=== PATIENT | female | born 1945 | race African-American/Black ===

== ENCOUNTER 2020-12-26 16:47 | Emergency (ER) | payer BC, MEDICARE ==
[~2020-12-26] VITALS: Ht 165.1 cm; Wt 63.5 kg
[~2020-12-26 16:47] MED LIST: BUTA1CAP45 PO; NITR0.4T49 SL; OXYC-105 PO
[2020-12-26] MEDS ORDERED: MAGNESIUM/ALUMINUM HYDROXIDE/SIMETHICONE 30ML UDC PO ONE (17:30)
[2020-12-26] MEDS ORDERED: HYDROCODONE/ACETAMINOPHEN 5/325MG TABLET PO ONE (17:30)
[2020-12-26] MEDS ORDERED: NITROGLYCERIN 0.4MG TABLET SL SL PRN (17:30)
[2020-12-26] MEDS ORDERED: ACETAMINOPHEN 325MG TABLET PO ONE (17:30)
[2020-12-26 18:57] LABS: BASOPHILS % 0.7 % (0.0-2.0); EOSINOPHILS % 0.7 % (0.0-5.0); HEMATOCRIT. 35.4 % (36.0-48.0); MEAN CORPUSCULAR HEMOGLOBIN 30.2 pg (28.0-32.0); MEAN CORPUSCULAR VOLUME 88.7 fL (81.0-99.0); MEAN PLATELET VOLUME 8.4 fl (7.4-10.4); MONOCYTES % 4.5 % (2.0-8.0); NEUTROPHILS % 83.1 % (40.0-76.0); PLATELET 374 x1000/uL (130-400); RED BLOOD CELL COUNT 3.98 mill/uL (4.2-5.4); RED CELL DISTRIBUTION WIDTH 15.3 % (11.6-14.6)
[2020-12-26 19:01] LABS: CHLORIDE 109 mEq/L (98-107)
[2020-12-26 19:06] LABS: PROTHROMBIN TIME 10.8 sec (9.6-11.0)
[2020-12-26 21:22] VITALS: BP 131/82
== END 2020-12-26 21:25 | disposition left against medical advice (07) ==
LOC: ER 16:47
DX: R07.89 Other chest pain (principal); I10 Essential (primary) hypertension; Z79.899 Other long term (current) drug therapy
CPT/HCPCS: 36415; 71045; 80053; 83880; 84484; 85025; 93005; 99285

== ENCOUNTER 2021-07-16 22:20 | Emergency (ER) | payer BC ==
[~2021-07-16] VITALS: Ht 175.3 cm; Wt 78.0 kg
[2021-07-17] MEDS ORDERED: VISCOUS LIDOCAINE 2% 15 ML UDC PO STA (01:24)
[2021-07-17] MEDS ORDERED: MAGNESIUM/ALUMINUM HYDROXIDE/SIMETHICONE 30ML UDC PO STA (01:24)
[2021-07-17] MEDS ORDERED: MORPHINE SULFATE 4 MG/ML CPJ (NOT FOR IM USE) IV ONE (01:30)
[2021-07-17 02:16] LABS: CHLORIDE 111 mEq/L (98-107)
[2021-07-17 03:24] LABS: BASOPHILS % 0.5 % (0.0-2.0); EOSINOPHILS % 0.6 % (0.0-5.0); HEMATOCRIT. 38.8 % (36.0-48.0); HEMOGLOBIN. 13.4 g/dL (12.0-16.0); LYMPHOCYTES % 20.4 % (20.0-50.0); MEAN CORPUSCULAR HEMOGLOBIN 30.5 pg (28.0-32.0); MEAN CORPUSCULAR VOLUME 88.6 fL (81.0-99.0); MEAN PLATELET VOLUME 8.7 fl (7.4-10.4); MONOCYTES % 6.2 % (2.0-8.0); NEUTROPHILS % 72.3 % (40.0-76.0); PLATELET 266 x1000/uL (130-400); RED BLOOD CELL COUNT 4.38 mill/uL (4.2-5.4); RED CELL DISTRIBUTION WIDTH 15.8 % (11.6-14.6)
[2021-07-17] MEDS ORDERED: MAG355OR21 MT (03:36)
[2021-07-17 04:05] VITALS: BP 165/90
== END 2021-07-17 04:09 | disposition home or self-care (01) ==
LOC: ER 22:20
DX: R07.9 Chest pain, unspecified (principal); I10 Essential (primary) hypertension; I25.10 Atherosclerotic heart disease of native coronary artery without angina pectoris; Z88.8 Allergy status to other drugs, medicaments and biological substances; Z79.899 Other long term (current) drug therapy; Z20.822 Contact with and (suspected) exposure to COVID-19
CPT/HCPCS: 36415; 71045; 80053; 83880; 84484; 85025; 87426; 93005; 96374; 99285; J2270

== ENCOUNTER 2021-09-15 10:46 | Inpatient (IN) | payer BC ==
[~2021-09-15] VITALS: Ht 170.2 cm; Wt 69.9 kg
[~2021-09-15 10:46] MED LIST changes: +MAG355OR21 MT
[2021-09-15 11:50] LABS: BASOPHILS % 0.7 % (0.0-2.0); EOSINOPHILS % 0.6 % (0.0-5.0); HEMATOCRIT. 38.6 % (36.0-48.0); LYMPHOCYTES % 16.3 % (20.0-50.0); MEAN CORPUSCULAR HEMOGLOBIN 30.3 pg (28.0-32.0); MEAN CORPUSCULAR VOLUME 90.2 fL (81.0-99.0); MEAN PLATELET VOLUME 8.7 fl (7.4-10.4); MONOCYTES % 5.6 % (2.0-8.0); NEUTROPHILS % 76.8 % (40.0-76.0); PLATELET 248 x1000/uL (130-400); RED BLOOD CELL COUNT 4.28 mill/uL (4.2-5.4)
[2021-09-15 11:55] LABS: CHLORIDE 110 mEq/L (98-107)
[2021-09-15 12:14] LABS: BG BASE EXCESS -1.3 mmol/L (-2.0-2.0); BG CARBOXYHEMOGLOBIN 0.3 % (0.5-1.5); BG DEOXYHEMOGLOBIN 2.8 % (0.0-5.0); BG FRACTION INSPIRED OXYGEN 21; BG HCO3 ACT 21.4 mmol/L (22.0-26.0); BG METHEMOGLOBIN 0.1 % (0.0-1.5); BG OXYGEN SATURATION 97.2 % (92.0-98.5); BG OXYHEMOGLOBIN 96.8 % (94.0-97.0); BG PCO2 30.2 mmHg (35.0-45.0); BG PH 7.468 (7.350-7.450); BG PO2 90.6 mmHg (75.0-100.0); BG SAMPLE SITE RIGHT BRACHIAL; BG TOTAL HEMOGLOBIN 13.3 g/dL (12.0-18.0); BG VENT MODE ROOM AIR
[2021-09-15 12:18] LABS: CLARITY URINE CLEAR (CLEAR); COLOR URINE YELLOW (YELLOW); KETONES URINE NEGATIVE (NEGATIVE); LEUKOCYTE ESTERASE URINE NEGATIVE (NEGATIVE); NITRITE URINE NEGATIVE (NEGATIVE); OCCULT BLOOD URINE NEGATIVE (NEGATIVE); PH URINE 5.5 (4.5-8.0); PROTEIN URINE NEGATIVE (NEGATIVE); SPECIFIC GRAVITY URINE 1.013 (1.005-1.030); UROBILINOGEN URINE 0.2 E.U./dL (0.2-1.0)
[2021-09-15] MEDS ORDERED: MORPHINE SULFATE 4 MG/ML CPJ (NOT FOR IM USE) IV NR (13:38)
[2021-09-15] MEDS ORDERED: AMLODIPINE 5MG TABLET PO NR (16:15)
[2021-09-15] MEDS ORDERED: ACETAMINOPHEN 325MG TABLET PO ONE (16:30)
[2021-09-15] MEDS ORDERED: ENOXAPARIN 40MG/0.4ML SYR SUBCUT SCH (17:00)
[2021-09-15] MEDS: OXYCODONE HCL/ACETAMINOPHEN 5/325MG TABLET PO PRN (20:02)
[2021-09-15 21:00] VITALS: BP 178/87
[2021-09-15] MEDS ORDERED: DILTIAZEM HCL 60MG TABLET PO NR (21:23)
[2021-09-15 22:00] VITALS: BP 178/71
[2021-09-16] VITALS: BP 123/72
[2021-09-16] MEDS: OXYCODONE HCL/ACETAMINOPHEN 5/325MG TABLET PO PRN (03:40)
[2021-09-16 04:00] VITALS: BP 131/72
[2021-09-16 08:00] VITALS: BP 142/64
[2021-09-16] MEDS ORDERED: AMLODIPINE 5MG TABLET PO SCH (09:00)
[2021-09-16 09:33] LABS: EOSINOPHILS % 1.9 % (0.0-5.0); HEMATOCRIT. 39.8 % (36.0-48.0); HEMOGLOBIN. 13.5 g/dL (12.0-16.0); LYMPHOCYTES % 41.3 % (20.0-50.0); MEAN CORPUSCULAR HEMOGLOBIN 30.5 pg (28.0-32.0); MEAN CORPUSCULAR VOLUME 90.3 fL (81.0-99.0); MEAN PLATELET VOLUME 8.8 fl (7.4-10.4); MONOCYTES % 10.1 % (2.0-8.0); NEUTROPHILS % 45.7 % (40.0-76.0); PLATELET 262 x1000/uL (130-400); RED BLOOD CELL COUNT 4.41 mill/uL (4.2-5.4); RED CELL DISTRIBUTION WIDTH 15.3 % (11.6-14.6)
[2021-09-16 09:45] LABS: CHLORIDE 107 mEq/L (98-107)
[2021-09-16] MEDS ORDERED: REGADENOSON 0.4 MG/5 ML IV ONE (10:02)
[2021-09-16 12:00] VITALS: BP 150/84
[2021-09-16] MEDS ORDERED: NALOXONE HCL 0.4MG/ML VIAL IV PRN ×2 (13:15)
[2021-09-16 14:37] VITALS: BP 150/84
[2021-09-16] MEDS ORDERED: ATORVASTATIN CALCIUM 10MG TABLET PO SCH (21:00)
== END 2021-09-16 15:25 | disposition home or self-care (01) | DRG 313 ==
LOC: ER 11:03 → 7EST 17:40 → ENRESERV 19:10
PROVIDERS: ADMIT Internal Medicine; ATTEND Internal Medicine
DX: R07.89 Other chest pain (principal); L51.1 Stevens-Johnson syndrome; F17.210 Nicotine dependence, cigarettes, uncomplicated; G43.909 Migraine, unspecified, not intractable, without status migrainosus; G89.4 Chronic pain syndrome; I10 Essential (primary) hypertension; I44.7 Left bundle-branch block, unspecified; E78.5 Hyperlipidemia, unspecified; J44.9 Chronic obstructive pulmonary disease, unspecified; I25.10 Atherosclerotic heart disease of native coronary artery without angina pectoris; Z20.822 Contact with and (suspected) exposure to COVID-19; M19.90 Unspecified osteoarthritis, unspecified site; M54.50 Low back pain, unspecified; Z79.899 Other long term (current) drug therapy; Z88.8 Allergy status to other drugs, medicaments and biological substances; Z88.6 Allergy status to analgesic agent
CPT/HCPCS: 36415; 36600; 71045; 78452; 80048; 80053; 80061; 80076; 81003; 82375; 82805; 83880; 84484; 85025; 86850; 86900; 87426; 93005; 93017; 93306; 99285; A9500; J1650; J2270; J2785

== ENCOUNTER 2021-10-03 14:38 | Emergency (ER) | payer BC ==
[~2021-10-03] VITALS: Ht 172.7 cm; Wt 65.0 kg
[2021-10-03 14:42] VITALS: BP 132/70
[2021-10-03 15:40] LABS: BASOPHILS % 0.7 % (0.0-2.0); EOSINOPHILS % 1.7 % (0.0-5.0); HEMATOCRIT. 37.9 % (36.0-48.0); HEMOGLOBIN. 12.6 g/dL (12.0-16.0); LYMPHOCYTES % 22.2 % (20.0-50.0); MEAN CORPUSCULAR HEMOGLOBIN 30.5 pg (28.0-32.0); MEAN CORPUSCULAR VOLUME 92.1 fL (81.0-99.0); MEAN PLATELET VOLUME 8.2 fl (7.4-10.4); MONOCYTES % 7.6 % (2.0-8.0); NEUTROPHILS % 67.8 % (40.0-76.0); PLATELET 294 x1000/uL (130-400); RED BLOOD CELL COUNT 4.12 mill/uL (4.2-5.4); RED CELL DISTRIBUTION WIDTH 15.1 % (11.6-14.6)
[2021-10-03 15:45] LABS: CHLORIDE 110 mEq/L (98-107)
== END 2021-10-03 20:00 | disposition left against medical advice (07) ==
LOC: ER 14:38
DX: R07.89 Other chest pain (principal); M54.9 Dorsalgia, unspecified
CPT/HCPCS: 36415; 80053; 83880; 84484; 85025; 93005; 99284

== ENCOUNTER 2022-01-10 12:51 | Emergency (ER) | payer BC ==
[~2022-01-10] VITALS: Ht 175.3 cm; Wt 61.0 kg
[2022-01-10 12:56] VITALS: BP 147/95
[2022-01-10 13:29] LABS: BASOPHILS % 0.5 % (0.0-2.0); EOSINOPHILS % 0.3 % (0.0-5.0); HEMOGLOBIN. 13.3 g/dL (12.0-16.0); LYMPHOCYTES % 13.3 % (20.0-50.0); MEAN CORPUSCULAR HEMOGLOBIN 29.2 pg (28.0-32.0); MEAN CORPUSCULAR VOLUME 87.7 fL (81.0-99.0); MEAN PLATELET VOLUME 8.3 fl (7.4-10.4); MONOCYTES % 4.8 % (2.0-8.0); NEUTROPHILS % 81.1 % (40.0-76.0); PLATELET 337 x1000/uL (130-400); RED BLOOD CELL COUNT 4.56 mill/uL (4.2-5.4)
[2022-01-10 13:37] LABS: CLARITY URINE CLEAR (CLEAR); COLOR URINE YELLOW (YELLOW); KETONES URINE NEGATIVE (NEGATIVE); LEUKOCYTE ESTERASE URINE NEGATIVE (NEGATIVE); NITRITE URINE NEGATIVE (NEGATIVE); OCCULT BLOOD URINE NEGATIVE (NEGATIVE); PH URINE >=9.0 (4.5-8.0); PROTEIN URINE NEGATIVE (NEGATIVE); SPECIFIC GRAVITY URINE 1.007 (1.005-1.030); UROBILINOGEN URINE 0.2 E.U./dL (0.2-1.0)
[2022-01-10 13:38] LABS: CHLORIDE 105 mEq/L (98-107)
== END 2022-01-10 19:02 | disposition left against medical advice (07) ==
LOC: ER 12:51 → CANBEDREQ 19:25
DX: R06.00 Dyspnea, unspecified (principal); R62.7 Adult failure to thrive; I10 Essential (primary) hypertension; Z68.1 Body mass index [BMI] 19.9 or less, adult; Z88.8 Allergy status to other drugs, medicaments and biological substances; Z90.49 Acquired absence of other specified parts of digestive tract; Z98.890 Other specified postprocedural states; Z98.51 Tubal ligation status
CPT/HCPCS: 36415; 71045; 80053; 81003; 83880; 84484; 85025; 93005; 99285